=== PATIENT | female | born 2000 | race Asian ===

== ENCOUNTER 2021-12-10 04:40 | Emergency (ER) | payer BC ==
[~2021-12-10] VITALS: Ht 160 cm; Wt 49.9 kg
[2021-12-10 04:43] VITALS: BP 118/76
--- NOTE | 2021-12-10 05:00 | NUR ---
PATIENT AMBULATED TO BED 6
--- NOTE | 2021-12-10 05:05 | NUR ---
DR. MCGOWAN AT BEDSIDE
[2021-12-10 05:20] VITALS: BP 118/76
--- NOTE | 2021-12-10 05:20 | NUR ---
Patient discharged with v/s stable. Written and verbal after care instructions given on [facility] and explained. Patient verbalized understanding. Ambulatory with steady gait. Advised to follow up with PMD.
--- NOTE | 2021-12-10 05:21 | NUR ---
The patient's care was reviewed and supervised by Roya Bernard RN.
== END 2021-12-10 05:20 | disposition home or self-care (01) ==
LOC: MED 04:40
DX: T78.49XA Other allergy, initial encounter (principal); X58.XXXA Exposure to other specified factors, initial encounter
CPT/HCPCS: 99282; Q0163